=== PATIENT | male | born 1950 | race Caucasian/White ===

== ENCOUNTER 2024-06-13 05:37 | Inpatient (IN) | payer MEDICARE ==
[2024-06-09 14:15] LABS: BASOPHILS # (AUTO) 0.1 X10'3 (0-0.2); BASOPHILS % (AUTO) 1.2 % (0-1); EOSINOPHILS # (AUTO) 0.2 X10'3 (0-0.9); EOSINOPHILS % (AUTO) 3.5 % (0-6); HEMOGLOBIN 16.4 g/dl (14.0-17.9); LYMPHOCYTES # (AUTO) 1.9 X10'3 (1.1-4.8); LYMPHOCYTES % (AUTO) 32.2 % (21-51); MEAN CORPUSCULAR HEMOGLOBIN 31.3 PG (27.0-31.0); MEAN CORPUSCULAR HGB CONC 34.2 g/dL (33.0-36.5); MEAN CORPUSCULAR VOLUME 91.4 FL (78-98); MEAN PLATELET VOLUME 7.7 FL (7.4-10.4); MONOCYTES # (AUTO) 0.5 X10'3 (0-0.9); MONOCYTES % (AUTO) 8.9 % (2-12); NEUTROPHILS # (AUTO) 3.2 X10'3 (1.8-7.7); NEUTROPHILS % (AUTO) 54.2 % (42-75); PLATELET COUNT 243 X10'3 (140-440); RED BLOOD COUNT 5.25 X10'6 (4.70-6.10); RED CELL DISTRIBUTION WIDTH 13.2 % (11.5-14.5); WHITE BLOOD COUNT 5.9 X10'3 (4.5-11.0)
[2024-06-09 14:29] LABS: APTT 27 SECONDS (22-32); PROTHROMBIN TIME 10.4 SECONDS (9.0-12.0)
[2024-06-09 14:32] LABS: ALANINE AMINOTRANSFERASE 30 U/L (12-78); ALBUMIN 3.9 G/DL (3.4-5.0); ALKALINE PHOSPHATASE 130 IU/L (46-116); ANION GAP 7 (8-16); ASPARTATE AMINO TRANSFERASE 22 U/L (10-37); BILIRUBIN,TOTAL 0.5 MG/DL (0.1-1.0); BLOOD UREA NITROGEN 24 MG/DL (7-18); BUN/CREATININE RATIO 22.6 (10.0-20.0); CHLORIDE 106 MMOL/L (99-107); CREATININE 1.06 MG/DL (0.60-1.10); GLUCOSE 92 MG/DL (70-104); POTASSIUM 3.9 MMOL/L (3.5-5.1); SODIUM 144 MMOL/L (135-145); TOTAL CARBON DIOXIDE 31.5 MMOL/L (24-32); TOTAL PROTEIN 7.8 G/DL (6.4-8.2); eGFR 68 ML/MIN
[2024-06-09 14:52] LABS: BILIRUBIN,URINE NEGATIVE (Neg); CLARITY,URINE CLEAR (Clear); COLOR,URINE YELLOW (Yellow); GLUCOSE, URINE NEGATIVE (Neg); KETONES,URINE NEGATIVE (Neg); LEUKOCYTE ESTERASE ,URINE NEGATIVE (Neg); NITRITES, URINE NEGATIVE (Neg); OCCULT BLOOD,URINE NEGATIVE (Neg); PROTEIN,URINE NEGATIVE (Neg); UROBILINOGEN,URINE 0.2 E.U/dL (0.2-1.0)
[2024-06-09 15:04] LABS: UA COLLECTION TYPE NON-SPECIFIED
[~2024-06-13] VITALS: Ht 185.4 cm; Wt 103.2 kg
[2024-06-13] VITALS (25 sets, daily range): BP systolic 100–148; BP diastolic 61–91; PULSE 60–79; RESP 10–18; TEMP 97.7–99.1; O2SAT 94–100
[~2024-06-13 05:37] MED LIST: IBUPROFEN 200MG PO
[2024-06-13] MEDS ORDERED: BUPIVAcaine 2.5mg/ml inj 50ml vial (contains preservative) ONE (06:34)
[2024-06-13] MEDS ORDERED: bacitracin 15gm ointment TP ONE (06:34)
[2024-06-13] MEDS ORDERED: vancomycin 1,000mg inj ONE (06:36)
[2024-06-13] MEDS: famotidine 20mg tablet PO ONE (06:42)
[2024-06-13] MEDS: ringers solution, lacted 1,000 ML IV SCH ×2 (06:42→07:35)
[2024-06-13] MEDS: ceFAZolin 2gm in dextrose, iso 50 ML IV ONE (06:42)
[2024-06-13] MEDS ORDERED: BUPIVAcaine/PF 5 mg/ml 10ml ONE (07:20)
[2024-06-13] MEDS ORDERED: BUPIVAcaine 0.5% inj/PF 30 ML ONE (07:20)
[2024-06-13] MEDS ORDERED: BUPIVACAINE liposomal/PF 13.3 MG/ML 10mL vial IM ONE (07:20)
[2024-06-13] MEDS ORDERED: tetracaine 1% (10mg/ml) pres. free inj. ONE (07:20)
[2024-06-13] MEDS ORDERED: fentaNYL/PF 50MCG/1 ML 2ML syringe ONE ×3 (07:23→12:13)
[2024-06-13] MEDS ORDERED: morphine 4 MG/ML inj SYRINge IV PRN (07:35)
[2024-06-13] MEDS ORDERED: morphine 2 MG/ML inj. syringe IV PRN (07:35)
[2024-06-13] MEDS ORDERED: ondansetron/PF 4mg/2ml inj IV PRN (07:35)
[2024-06-13] MEDS ORDERED: fentaNYL/PF 50MCG/1 ML 2ML syringe IV PRN ×2 (07:35)
[2024-06-13] MEDS ORDERED: labetalol 20mg/4ml (5mg/ml) syringe IV PRN (07:35)
[2024-06-13] MEDS ORDERED: hydrALAZINE 20mg/ml inj. IV PRN (07:35)
[2024-06-13] MEDS ORDERED: sevoflurane 250ml liquid IH ONE (08:10)
[2024-06-13] MEDS ORDERED: hydrALAZINE 20mg/ml inj. ONE (09:00)
[2024-06-13] MEDS ORDERED: ketorolac trometh 30MG/ML vial 30 MG/ML VIAL ONE (12:10)
[2024-06-13] MEDS ORDERED: acetaminophen 1,000mg/100ml IV 100 ML IV ONE (12:10)
[2024-06-13] MEDS ORDERED: IBUP-24 PO (14:50)
[2024-06-13] MEDS ORDERED: naloxone 0.4 mg/ml inj IV PRN (15:35)
[2024-06-13] MEDS: HYDROmorph/NS 0.2 mg/ml PCA 100 ML IV SCH (16:06)
[2024-06-13] MEDS: ceFAZolin 1,000 MG in NS 50ML IVPB IV SCH (18:44)
[2024-06-13] MEDS: enoxaparin 40mg/0.4ml syringe SQ SCH (20:41)
[2024-06-14 02:00] VITALS: BP 109/64; PULSE 79; RESP 16; TEMP 98.9; O2SAT 95
[2024-06-14 06:00] VITALS: BP_SYST 107; BP_SYST 113; BP_DIAS 57; BP_DIAS 62; PULSE 71; PULSE 74; RESP 16; RESP 20; TEMP 99.2; TEMP 99.6; O2SAT 95
[2024-06-14 08:00] VITALS: RESP 19; O2SAT 95
[2024-06-14 10:00] VITALS: BP 107/62; PULSE 74; RESP 16; TEMP 99.2; O2SAT 95
[2024-06-14] MEDS: aspirin 81mg, enteric-coated 1 TAB TABLET.DR PO SCH (10:00)
[2024-06-14] MEDS: ondansetron/PF 4mg/2ml inj IV ONE (15:55)
[2024-06-14 16:16] LABS: HEMATOCRIT 40.2 % (42.0-52.0); HEMOGLOBIN 13.6 g/dl (14.0-17.9); MEAN CORPUSCULAR HEMOGLOBIN 31.1 PG (27.0-31.0); MEAN CORPUSCULAR HGB CONC 33.9 g/dL (33.0-36.5); MEAN CORPUSCULAR VOLUME 91.5 FL (78-98); MEAN PLATELET VOLUME 7.5 FL (7.4-10.4); PLATELET COUNT 224 X10'3 (140-440); RED BLOOD COUNT 4.39 X10'6 (4.70-6.10); RED CELL DISTRIBUTION WIDTH 13.4 % (11.5-14.5); WHITE BLOOD COUNT 12.4 X10'3 (4.5-11.0)
[2024-06-14 18:00] VITALS: BP 123/70; PULSE 80; RESP 18; TEMP 98.8; O2SAT 97
[2024-06-14 22:00] VITALS: BP 118/68; PULSE 78; RESP 18; TEMP 99.9; O2SAT 96
[2024-06-14] MEDS: ibuprofen 200mg tablet PO PRN (22:04)
[2024-06-14] MEDS: PCA WASTE DOCUMENTATION 1 MG ML MC SCH (23:48)
[2024-06-15] MEDS: oxyCODONE/APAP 10/325mg tablet PO PRN (03:25)
[2024-06-15 06:00] VITALS: BP 114/54; PULSE 63; RESP 17; TEMP 98.4; O2SAT 96
[2024-06-15 10:00] VITALS: BP 119/63; PULSE 74; RESP 18; TEMP 99.4; O2SAT 97
[2024-06-15] MEDS: ringers solution, lacted 1,000 ML IV SCH (10:45)
[2024-06-15 15:01] VITALS: RESP 18; O2SAT 97
[2024-06-15 15:18] VITALS: RESP 16; O2SAT 98
[2024-06-15 18:04] VITALS: RESP 16; O2SAT 97
[2024-06-15 22:00] VITALS: BP 141/70; PULSE 88; RESP 18; TEMP 98; O2SAT 96
[2024-06-16 06:00] VITALS: BP 109/67; PULSE 69; RESP 18; TEMP 99.1; O2SAT 95
[2024-06-16 09:05] VITALS: RESP 16; O2SAT 95
[2024-06-16 09:43] VITALS: RESP 16
== END 2024-06-16 11:19 | DRG 505 ==
LOC: OBSVTOIN 05:37 → PAS IN 05:37 → INTOOBSV 05:37 → EDSTATUS 07:30 → PACU 13:27 → SUR 3N 17:00
PROVIDERS: ADMIT Podiatrist Foot & Ankle Surgery; ATTEND Podiatrist Foot & Ankle Surgery
PROC: 0SGN07Z Fusion of Left Metatarsal-Phalangeal Joint with Autologous Tissue Substitute, Open Approach (ICD-10-PCS; 2024-06-13)
PROC: 0SG Lower Joints, Fusion (ICD-10-PCS; 2024-06-13)
PROC: 0L8P3ZZ Division of Left Lower Leg Tendon, Percutaneous Approach (ICD-10-PCS; 2024-06-13)
PROC: 3E0T3BZ Introduction of Anesthetic Agent into Peripheral Nerves and Plexi, Percutaneous Approach (ICD-10-PCS; 2024-06-13)
PROC: [UNRECOGNIZED PROCEDURE] (principal; 2024-06-13 08:10)
DX: M13.872 Other specified arthritis, left ankle and foot (principal); I95.9 Hypotension, unspecified; M21.6X2 Other acquired deformities of left foot; M62.472 Contracture of muscle, left ankle and foot; M76.62 Achilles tendinitis, left leg
CPT/HCPCS: 36415; 71046; 73610; 76000; 80053; 81003; 82948; 85025; 85027; 85610; 85730; 87081; 93005; 97110; 97116; 97161; 97530; 97535; A4618; A6250; A6253; A6449; A7000; C1713; C1776; G0378; J0131; J0360; J0665; J0666; J0690; J1171; J1650; J1885; J2405; J3010; J3370; J3490; J7120